=== PATIENT | female | born 1980 | race Caucasian/White ===

== ENCOUNTER 2022-12-03 22:37 | Inpatient (IN) | payer SELFPAY ==
[2022-12-03] MEDS ORDERED: ONDANSETRON 4 MG/2 ML VIAL IVP STA (23:06)
[2022-12-03] MEDS ORDERED: SODIUM CHLORIDE 0.9% 1,000 ML IV STA (23:06)
[2022-12-03] MEDS ORDERED: MORPHINE SULFATE 4 MG/ML SYRINGE IVP STA (23:07)
--- NOTE | 2022-12-03 23:27 | ED ---
Abdominal Pain HPI - General Source: patient Mode of arrival: ambulatory Limitations: no limitations <Bimal Blanco - Last Filed: 12/04/22 00:15> - General Source: RN notes reviewed, old records reviewed - History of Present Illness Complaint: abdominal pain Location: RLQ, R flank Radiation: RLQ, R flank Migration to: RLQ, suprapubic Severity: moderate Severity scale (1-10): 7 Quality: stabbing Consistency: constant Improves With: nothing Worsens With: nothing Associated Symptoms: nausea Treatments Prior to Arrival: other (0) <Lito Mac - Last Filed: 12/04/22 01:13> - General Chief Complaint: Abdominal Pain Stated Complaint: Abd Pain Time Seen by Provider: 12/03/22 22:59 - History of Present Illness Initial Comments: Patient is a 42-year-old female presenting with chief complaint of abdominal pain. Pain is located on the right side of her abdomen has been present for the last 24 hours. She admits to nausea and vomiting as well as loss of appetite. No diarrhea, hematochezia, melena. No dysuria, hematuria, flank pain. No vaginal bleeding or discharge. Surgical history includes hysterectomy. (Bimal Blanco) - Related Data Allergies Allergy/AdvReac Type Severity Reaction Status Date / Time No Known Allergies Allergy Verified 12/03/22 22:50 Review of Systems ROS Other: All systems not noted in ROS Statement are negative. <Bimal Blanco - Last Filed: 12/04/22 00:15> ROS Other: All systems not noted in ROS Statement are negative. <Lito Mac - Last Filed: 12/04/22 01:13> ROS Statement: Those systems with pertinent positive or pertinent negative responses have been documented in the HPI. Past Medical History Past Medical History: No Reported History History of Any Multi-Drug Resistant Organisms: None Reported Past Surgical History: Hysterectomy Past Psychological History: No Psychological Hx Reported Smoking Status: Never smoker Past Alcohol Use History: None Reported Past Drug Use History: None Reported <Bimal Blanco - Last Filed: 12/04/22 00:15> General Exam Limitations: no limitations General appearance: alert, in no apparent distress Head exam: Present: atraumatic, normocephalic, normal inspection Eye exam: Present: normal appearance Neck exam: Present: normal inspection, full ROM Respiratory exam: Present: normal lung sounds bilaterally. Absent: respiratory distress, wheezes, rales, rhonchi, stridor Cardiovascular Exam: Present: regular rate, normal rhythm, normal heart sounds. Absent: systolic murmur, diastolic murmur, rubs, gallop, clicks GI/Abdominal exam: Present: soft, tenderness, guarding. Absent: distended, rebound, rigid Neurological exam: Present: alert, oriented X3, CN II-XII intact Psychiatric exam: Present: normal affect, normal mood Skin exam: Present: warm, dry, intact, normal color. Absent: rash <Bimal Blanco - Last Filed: 12/04/22 00:15> General appearance: alert, in no apparent distress Head exam: Present: atraumatic, normocephalic, normal inspection Eye exam: Present: normal appearance, PERRL, EOMI. Absent: scleral icterus, c onjunctival injection, periorbital swelling ENT exam: Present: normal exam, mucous membranes moist Neck exam: Present: normal inspection. Absent: tenderness, meningismus, lymphadenopathy Respiratory exam: Present: normal lung sounds bilaterally. Absent: respiratory distress, wheezes, rales, rhonchi, stridor Cardiovascular Exam: Present: regular rate, normal rhythm, normal heart sounds. Absent: systolic murmur, diastolic murmur, rubs, gallop, clicks GI/Abdominal exam: Present: soft, normal bowel sounds. Absent: distended, tenderness, guarding, rebound, rigid Extremities exam: Present: normal inspection, full ROM, normal capillary refill. Absent: tenderness, pedal edema, joint swelling, calf tenderness Back exam: Present: normal inspection Neurological exam: Present: alert, oriented X3, CN II-XII intact Psychiatric exam: Present: normal affect, normal mood Skin exam: Present: warm, dry, intact, normal color. Absent: rash <Lito Mac - Last Filed: 12/04/22 01:13> Course <Bimal Blanco - Last Filed: 12/04/22 00:15> <Lito Mac - Last Filed: 12/04/22 01:13> Vital Signs 12/03/22 22:46 Temperature 98.9 F Pulse Rate 118 H Respiratory 20 Rate Blood Pressure 134/76 O2 Sat by Pulse 97 Oximetry - Reevaluation(s) Reevaluation #1: Patient is signed out to my attending Dr. Mac for further management and disposition 12/04/22 00:15 (Bimal Blanco) Reevaluation #2: 12/04/22 01:08 Medical record is reviewed (Lito Mac) Reevaluation #3: 12/04/22 01:08 Patient informed of results questions answered (Lito Mac) Reevaluation #4: 12/04/22 01:08 Differential Abdominal Pain Women: Appendicitis, Cholecystitis, diverticulosis, ischemic bowel, pancreatitis, hepatitis, UTI, gastroenteritis, AAA, incarcerated hernia, bowel obstruction, constipation, inflammatory bowel, hepatitis, peptic ulcer disease, splenic infarction, perforated viscus, vulvitis, ovarian torsion, PID, kidney stone, placenta abruption, this is not meant to be an all-inclusive list (Lito Mac) Reevaluation #5: 12/04/22 01:09 Was pt. sent in by a medical professional or institution? @ -no Did you speak to anyone other than the patient for history? @ -family Did you review nursing and triage notes? @ -agree Were old charts reviewed? @ -no Differential Diagnosis? @ -prior EKG interpreted by me (3pts min.)? @ -[none] X-rays interpreted by me (1pt min.)? @ -[none] CT interpreted by me (1pt min.)? @ -[none] U/S interpreted by me (1pt. min.)? @ -[none] What testing was considered but not performed? (CT, X-rays, U/S, labs)? Why? @ [CT, X-rays, U/S, labs? Why?] What meds were considered but not given? Why? @ -[none] Did you discuss the management of the patient with other professionals? @ --no Did you reconcile home meds? @ -[none] Was smoking cessation discussed for >3mins.? @ -[none] Was critical care preformed (if so, how long)? @ -[none] Were there social determinants of health that impacted care today? How? (Homelessness, low income, unemployed, alcoholism, drug addiction, transportation, low edu. Level, literacy, decrease access to med. care, fpc, rehab)? @ -no Was there de-escalation of care discussed even if they declined? (Discuss DNR or withdrawal of care, Hospice)? @ -no What co-morbidities impacted this encounter? (DM, HTN, Smoking, COPD, CAD, Cancer, CVA, Hep., AIDS, mental health diagnosis, sleep apnea, morbid obesity)? @ -no Was patient admitted / discharged? @ -admit Undiagnosed new problem with uncertain prognosis? @ -[none] Drug Therapy requiring intensive monitoring for toxicity (Heparin, Nitro, Insulin, Cardizem)? @ -[none] Were any procedures done? @ -[none] Diagnosis/symptom? @ -[default] Acute, or Chronic, or Acute on Chronic? @ -[default] Uncomplicated (without systemic symptoms) or Complicated (systemic symptoms)? @ -[default] Side effects of treatment? @ -[none] Exacerbation, Progression, or Severe Exacerbation] @ -[no] Poses a threat to life or bodily function? @ -[no] (Lito Mac) - Consultations Consultation #1: Spoke with attending surgical physician who we will admit this patient (Lito Mac) Medical Decision Making - Lab Data Result diagrams: 12/03/22 23:19 12/03/22 23:19 <Bimal Blanco - Last Filed: 12/04/22 00:15> - Lab Data Result diagrams: 12/03/22 23:19 12/03/22 23:19 - Radiology Data Radiology results: report reviewed (CT abdomen and pelvis is positive for appendicitis), image reviewed <Lito Mac - Last Filed: 12/04/22 01:13> - Medical Decision Making [age] female positive appendicitis positive white count possible rupture place on antibiotics pain control currently comfortable for signs have been normal and stable patient will be admitted (Lito Mac) - Lab Data Lab Results 12/03/22 12/03/22 12/03/22 Range/Units 23:19 23:19 23:19 WBC 15.1 H (3.8-10.6) k/uL RBC 5.77 H (3.80-5.40) m/uL Hgb 16.4 H (11.4-16.0) gm/dL Hct 46.3 H (34.0-46.0) % MCV 80.3 (80.0-100.0) fL MCH 28.4 (25.0-35.0) pg MCHC 35.4 (31.0-37.0) g/dL RDW 12.4 (11.5-15.5) % Plt Count 195 (150-450) k/uL MPV 7.9 Neutrophils % 83 % Lymphocytes % 11 % Monocytes % 6 % Eosinophils % 0 % Basophils % 0 % Neutrophils # 12.5 H (1.3-7.7) k/uL Lymphocytes # 1.6 (1.0-4.8) k/uL Monocytes # 0.9 (0-1.0) k/uL Eosinophils # 0.0 (0-0.7) k/uL Basophils # 0.0 (0-0.2) k/uL PT 10.6 (9.0-12.0) sec INR 1.0 (<1.2) APTT 25.5 (22.0-30.0) sec Sodium (137-145) mmol/L Potassium (3.5-5.1) mmol/L Chloride (98-107) mmol/L Carbon Dioxide (22-30) mmol/L Anion Gap mmol/L BUN (7-17) mg/dL Creatinine (0.52-1.04) mg/dL Est GFR (CKD-EPI)AfAm (>60 ml/min/1.73 sqM) Est GFR (CKD-EPI)NonAf (>60 ml/min/1.73 sqM) Glucose (74-99) mg/dL Plasma Lactic Acid Eduardo (0.7-2.0) mmol/L Calcium (8.4-10.2) mg/dL Total Bilirubin (0.2-1.3) mg/dL AST (14-36) U/L ALT (4-34) U/L Alkaline Phosphatase (38-126) U/L Total Protein (6.3-8.2) g/dL Albumin (3.5-5.0) g/dL Amylase (30-110) U/L Lipase (23-300) U/L Urine Color Colorless Urine Appearance Clear (Clear) Urine pH 5.5 (5.0-8.0) Ur Specific [place] 1.002 (1.001-1.035) Urine Protein Negative (Negative) Urine Glucose (UA) Negative (Negative) Urine Ketones Negative (Negative) Urine Blood Negative (Negative) Urine Nitrite Negative (Negative) Urine Bilirubin Negative (Negative) Urine Urobilinogen <2.0 (<2.0) mg/dL Ur Leukocyte Esterase Negative (Negative) 12/03/22 12/03/22 Range/Units 23:19 23:19 WBC (3.8-10.6) k/uL RBC (3.80-5.40) m/uL Hgb (11.4-16.0) gm/dL Hct (34.0-46.0) % MCV (80.0-100.0) fL MCH (25.0-35.0) pg MCHC (31.0-37.0) g/dL RDW (11.5-15.5) % Plt Count (150-450) k/uL MPV Neutrophils % % Lymphocytes % % Monocytes % % Eosinophils % % Basophils % % Neutrophils # (1.3-7.7) k/uL Lymphocytes # (1.0-4.8) k/uL Monocytes # (0-1.0) k/uL Eosinophils # (0-0.7) k/uL Basophils # (0-0.2) k/uL PT (9.0-12.0) sec INR (<1.2) APTT (22.0-30.0) sec Sodium 137 (137-145) mmol/L Potassium 3.5 (3.5-5.1) mmol/L Chloride 100 (98-107) mmol/L Carbon Dioxide 26 (22-30) mmol/L Anion Gap 11 mmol/L BUN 7 (7-17) mg/dL Creatinine 0.59 (0.52-1.04) mg/dL Est GFR (CKD-EPI)AfAm >90 (>60 ml/min/1.73 sqM) Est GFR (CKD-EPI)NonAf >90 (>60 ml/min/1.73 sqM) Glucose 135 H (74-99) mg/dL Plasma Lactic Acid Eduardo 2.2 H* (0.7-2.0) mmol/L Calcium 9.5 (8.4-10.2) mg/dL Total Bilirubin 1.2 (0.2-1.3) mg/dL AST 21 (14-36) U/L ALT 22 (4-34) U/L Alkaline Phosphatase 85 (38-126) U/L Total Protein 8.0 (6.3-8.2) g/dL Albumin 4.7 (3.5-5.0) g/dL Amylase 47 (30-110) U/L Lipase 70 (23-300) U/L Urine Color Urine Appearance (Clear) Urine pH (5.0-8.0) Ur Specific [place] (1.001-1.035) Urine Protein (Negative) Urine Glucose (UA) (Negative) Urine Ketones (Negative) Urine Blood (Negative) Urine Nitrite (Negative) Urine Bilirubin (Negative) Urine Urobilinogen (<2.0) mg/dL Ur Leukocyte Esterase (Negative) Disposition <Bimal Blanco - Last Filed: 12/04/22 00:15> Is patient prescribed a controlled substance at d/c from ED?: No Time of Disposition: 01:15 <Lito Mac - Last Filed: 12/04/22 01:13> Clinical Impression: Acute abdomen, Abdominal pain, Acute appendicitis Disposition: ADMITTED IP TO THIS HOSP Condition: Serious Referrals: None,Stated [Primary Care Provider] - 1-2 days
[2022-12-03 23:43] LABS: Basophils % (A) 0 %; Eosinophils % (A) 0 %; HCT 46.3 % (34.0-46.0); HGB 16.4 gm/dL (11.4-16.0); Lymphocytes # (A) 1.6 k/uL (1.0-4.8); Lymphocytes % (A) 11 %; MCH 28.4 pg (25.0-35.0); MCHC 35.4 g/dL (31.0-37.0); MCV 80.3 fL (80.0-100.0); Mean Platelet Volume 7.9; Monocytes # (A) 0.9 k/uL (0-1.0); Monocytes % (A) 6 %; Neutrophils # (A) 12.5 k/uL (1.3-7.7); Neutrophils % (A) 83 %; Platelet Count 195 k/uL (150-450); RBC 5.77 m/uL (3.80-5.40); RDW 12.4 % (11.5-15.5); WBC 15.1 k/uL (3.8-10.6)
[2022-12-03 23:53] LABS: Partial Thromboplastin Time 25.5 sec (22.0-30.0); Prothrombin Time 10.6 sec (9.0-12.0)
[2022-12-03 23:54] LABS: Appearance,Urine Clear (Clear); Bilirubin,Urine Negative (Negative); Blood,Urine Negative (Negative); Color,Urine Colorless; Glucose,Urine (UA) Negative (Negative); Ketones,Urine Negative (Negative); Leukocyte Esterase,Urine Negative (Negative); Nitrite,Urine Negative (Negative); PH, Urine 5.5 (5.0-8.0); Protein,Urine Negative (Negative); Specific Gravity,Urine 1.002 (1.001-1.035); Urobilinogen,Urine <2.0 mg/dL (<2.0)
[2022-12-03 23:57] LABS: ALT 22 U/L (4-34); AST 21 U/L (14-36); African American GFR (CKD) >90 (>60 ml/min/1.73 sqM); Albumin 4.7 g/dL (3.5-5.0); Alkaline Phosphatase 85 U/L (38-126); Amylase 47 U/L (30-110); Anion Gap 11 mmol/L; Blood Urea Nitrogen 7 mg/dL (7-17); Calcium 9.5 mg/dL (8.4-10.2); Carbon Dioxide 26 mmol/L (22-30); Chloride 100 mmol/L (98-107); Glucose 135 mg/dL (74-99); Lipase 70 U/L (23-300); Non-African American GFR(CKD) >90 (>60 ml/min/1.73 sqM); Potassium 3.5 mmol/L (3.5-5.1); Sodium 137 mmol/L (137-145); Total Bilirubin 1.2 mg/dL (0.2-1.3)
--- NOTE | 2022-12-04 00:49 | CT ---
EXAMINATION TYPE: CT abdomen pelvis w con DATE OF EXAM: 12/04/2022 COMPARISON: None HISTORY: right sided abd pain CT DLP: [id number] mGycm Automated exposure control for dose reduction was used. CONTRAST: Performed with IV Contrast, patient injected with 100 mL of Isovue 300. Images obtained from the diaphragm to the floor the pelvis with the IV contrast. Lung bases are clear of consolidation. No pleural effusion. There is minimal subsegmental atelectasis at the lung bases. Heart size is normal. No pericardial effusion. Liver spleen and stomach pancreas and gallbladder appear intact. The bile duct are not dilated. There is no adrenal mass. Kidneys show satisfactory contrast opacification. There is no hydronephrosi s. Ureters are not dilated. Delayed images show normal renal excretion. No retroperitoneal adenopathy . The bladder distends smoothly. No inguinal hernia. There is hysterectomy. The lumbar vertebrae have normal alignment. Posterior element are intact. Disc spaces are normal. No compression fracture. The bony pelvis is intact. The hip joints are intact. There is moderate fat stranding in the right lower quadrant with dilated fluid-filled appendix. Appen zbigniew measures up to 1.5 cm. There is small amount of low-density fluid in the pelvis on the right side . There is no evidence of a bowel obstruction. No intestinal wall thickening. IMPRESSION: Dilated appendix with fat stranding and fluid. There is some free fluid in the pelvis and ruptured ap pendicitis is likely.
[2022-12-04] MEDS ORDERED: AMPICILLIN-SULBACTAM 3 GM in SODIUM CHLORIDE 0.9% 100 ML IVPB STA (00:51)
[2022-12-04] MEDS ORDERED: MORPHINE SULFATE 4 MG/ML SYRINGE IVP STA (00:51)
[2022-12-04] MEDS ORDERED: NALOXONE 0.4 MG/ML 1 ML VIAL IV PRN (01:06)
[2022-12-04] MEDS: SODIUM CHLORIDE 0.9% 1,000 ML IV SCH ×3 (01:24→21:00)
[2022-12-04] MEDS: MORPHINE SULFATE 4 MG/ML SYRINGE IVP PRN ×3 (05:26→20:57)
[2022-12-04] MEDS: AMPICILLIN-SULBACTAM 3 GM in SODIUM CHLORIDE 0.9% 100 ML IVPB SCH ×3 (06:14→20:53)
--- NOTE | 2022-12-04 15:07 | P.GSHP ---
History of Present Illness H&P Date: 12/04/22 Chief Complaint: Acute appendicitis 42-year-old female who had classic signs and symptoms of acute appendicitis came to the emergency department with right lower quadrant pain. The emergency room physician suspected this diagnosis and CT confirmed this. She had other findin gs consistent with the diagnosis. She was admitted to the hospital and started on IV antibiotics around 1:30 AM on 12/04/2022. - Constitutional Constitutional: Reports as per HPI - Cardiovascular Cardiovascular: Reports as per HPI - Respiratory Respiratory: Reports as per HPI - Gastrointestinal Gastrointestinal: Reports as per HPI - Genitourinary (Female) Genitourinary: Reports as per HPI - Menstruation Menstruation: Reports as per HPI - Genitourinary (Male) Genitourinary: Reports as per HPI - Musculoskeletal Musculoskeletal: Reports as per HPI - Integumentary Integumentary: Reports as per HPI - Neurological Neurological: Reports as per HPI - Psychiatric Psychiatric: Reports as per HPI - Endocrine Endocrine: Reports as per HPI - Hematologic/Lymphatic Hematologic/Lymphatic: Reports as per HPI - Allergic/Immunologic Allergic/Immunologic: Reports as per HPI Past Medical History Past Medical History: No Reported History History of Any Multi-Drug Resistant Organisms: None Reported Past Surgical History: Hysterectomy Past Anesthesia/Blood Transfusion Reactions: No Reported Reaction Past Psychological History: No Psychological Hx Reported Smoking Status: Never smoker Past Alcohol Use History: None Reported Past Drug Use History: None Reported Medications and Allergies Home Medications Medication Instructions Recorded Confirmed Type No Known Home Medications 12/04/22 12/04/22 History Allergies Allergy/AdvReac Type Severity Reaction Status Date / Time No Known Allergies Allergy Verified 12/04/22 11:41 Surgical - Exam Vital Signs Temp Pulse Resp BP Pulse Ox 98.9 F 118 H 20 134/76 97 12/03/22 22:46 12/03/22 22:46 12/03/22 22:46 12/03/22 22:46 12/03/22 22:46 - General well developed, well nourished, moderate pain - Eyes PERRL - ENT normal pinna, normal nares, normal mucosa, no hearing loss, no congestion - Neck no masses, no bruits, trachea midline, no lymphadectomy, no venous distension - Respiratory normal expansion, normal respiratory effort, clear to percussion, clear to auscultation - Cardiovascular Rhythm: regular - Abdomen Abdomen: soft, tender, guarding, rebound Hernia: none - Genitourinary normal external genitalia, normal perineum - Rectum Rectum: normal sphincter tone, no hemorrhoids, no tenderness - Integumentary no rash, no growths - Neurologic normal coordination, normal sensation - Musculoskeletal normal gait - Psychiatric oriented to time, oriented to person Results - Labs 12/03/22 23:19 12/03/22 23:19 Abnormal Lab Results - Last 24 Hours (Table) 12/03/22 12/03/22 12/03/22 Range/Units 23:19 23:19 23:19 WBC 15.1 H (3.8-10.6) k/uL RBC 5.77 H (3.80-5.40) m/uL Hgb 16.4 H (11.4-16.0) gm/dL Hct 46.3 H (34.0-46.0) % Neutrophils # 12.5 H (1.3-7.7) k/uL Glucose 135 H (74-99) mg/dL Plasma Lactic Acid Eduardo 2.2 H* (0.7-2.0) mmol/L Diabetes panel 12/03/22 Range/Units 23:19 Sodium 137 (137-145) mmol/L Potassium 3.5 (3.5-5.1) mmol/L Chloride 100 (98-107) mmol/L Carbon Dioxide 26 (22-30) mmol/L BUN 7 (7-17) mg/dL Creatinine 0.59 (0.52-1.04) mg/dL Glucose 135 H (74-99) mg/dL Calcium 9.5 (8.4-10.2) mg/dL AST 21 (14-36) U/L ALT 22 (4-34) U/L Alkaline Phosphatase 85 (38-126) U/L Total Protein 8.0 (6.3-8.2) g/dL Albumin 4.7 (3.5-5.0) g/dL Calcium panel 12/03/22 Range/Units 23:19 Calcium 9.5 (8.4-10.2) mg/dL Albumin 4.7 (3.5-5.0) g/dL Pituitary panel 12/03/22 Range/Units 23:19 Sodium 137 (137-145) mmol/L Potassium 3.5 (3.5-5.1) mmol/L Chloride 100 (98-107) mmol/L Carbon Dioxide 26 (22-30) mmol/L BUN 7 (7-17) mg/dL Creatinine 0.59 (0.52-1.04) mg/dL Glucose 135 H (74-99) mg/dL Calcium 9.5 (8.4-10.2) mg/dL Adrenal panel 12/03/22 Range/Units 23:19 Sodium 137 (137-145) mmol/L Potassium 3.5 (3.5-5.1) mmol/L Chloride 100 (98-107) mmol/L Carbon Dioxide 26 (22-30) mmol/L BUN 7 (7-17) mg/dL Creatinine 0.59 (0.52-1.04) mg/dL Glucose 135 H (74-99) mg/dL Calcium 9.5 (8.4-10.2) mg/dL Total Bilirubin 1.2 (0.2-1.3) mg/dL AST 21 (14-36) U/L ALT 22 (4-34) U/L Alkaline Phosphatase 85 (38-126) U/L Total Protein 8.0 (6.3-8.2) g/dL Albumin 4.7 (3.5-5.0) g/dL Assessment and Plan (1) Acute appendicitis Current Visit: Yes Status: Acute Code(s): K35.80 - UNSPECIFIED ACUTE APPENDICITIS SNOMED Code(s): 29736163 Plan: Laparoscopic appendectomy today
[2022-12-04] MEDS ORDERED: DEXAMETHASONE SOD PHOSPHATE 4 MG/ML 1 ML VIAL IV ONE (17:00)
[2022-12-04] MEDS ORDERED: fentaNYL (PF) 50 MCG/ML 2 ML AMP ONE (17:00)
[2022-12-04] MEDS ORDERED: GLYCOPYRROLATE 0.2 MG/ML 2 ML VIAL ONE (17:00)
[2022-12-04] MEDS ORDERED: ROCURONIUM 10 MG/ML (5 ML VIAL) IV ONE (17:00)
[2022-12-04] MEDS ORDERED: LIDOCAINE 4% LTA KIT (4 ML) TOPICAL ONE (17:00)
[2022-12-04] MEDS ORDERED: PROPOFOL 10 MG/ML 20 ML VIAL IV ONE (17:00)
[2022-12-04] MEDS ORDERED: SUCCINYLCHOLINE CHLORIDE 200 MG/10 ML VIAL IV ONE (17:00)
[2022-12-04] MEDS ORDERED: LIDOCAINE 2% INJ 20 MG/ML (2 ML VIAL) ONE (17:00)
[2022-12-04] MEDS ORDERED: NEOSTIGMINE 1 MG/ML 10 ML VIAL ONE (17:00)
[2022-12-04] MEDS ORDERED: MIDAZOLAM 2 MG/2 ML VIAL ONE (17:00)
[2022-12-04] MEDS ORDERED: SCOPOLAMINE 1 MG/72 HR PATCH TRANSDERM ONE (17:00)
[2022-12-04] MEDS ORDERED: ONDANSETRON 4 MG/2 ML VIAL IVP ONE (17:00)
[2022-12-04] MEDS ORDERED: IV FLUID CONTINUATION 200 ML IV ONE (17:05)
[2022-12-04] MEDS ORDERED: BUPIVACAIN-EPI 0.25%-1:200,000 30 ML VIAL SQ ONE ×2 (17:05)
[2022-12-04] MEDS ORDERED: LACTATED RINGERS 1,000 ML IV ONE (17:30)
--- NOTE | 2022-12-04 18:02 | P.OP ---
Date of Procedure: 12/04/22 Preoperative Diagnosis: Acute appendicitis Postoperative Diagnosis: Acute appendicitis without rupture or perforation Procedure(s) Performed: Laparoscopic appendectomy Implants: None Anesthesia: MIKEA Surgeon: Torres Gonzalez Estimated Blood Loss (ml): 50 Pathology: other (Appendix) Condition: stable Disposition: other (Discharge home) Indications for Procedure: 42-year-old female presented with classic signs and symptoms of acute appendicitis and the diagnosis was confirmed on imaging and exam. Patient was taken for left scopic appendectomy in the same day. Informed consent was obtained. Operative Findings: Under sterile conditions and general anesthesia left direct view laparoscopy was used pneumoperitoneum was created second and third ports were placed some adhesions were taken down around the umbilicus the appendix was visualized this was retrocecal and a window was created along the appendix and cecum there was a lot of inflammation in this area but I was able to get the stapler echelon 60 load across the base of the appendix and I felt this would be a good angle and would grab good tissue so we transected the appendix then we came through the mesoappendix and put the appendix with the mesal appendix in the Endo Catch bag and remove the Endo Catch bag through the left lower incision this was a 12 mm port. Then we used a Cholo-Marcos to close this there was no evidence of perforation or contamination there was some reactive fluid but no pus or stool but there was a lot of edema and swelling. The cecum appeared to have a quite a bit of edema about it but it looked viable and looks good. The abdomen and pelvis was irrigated and evacuated the ports were removed the Cholo-Marcos was used to close the 12 mm port and left lower quadrant under direct visualization. The wound was closed in standard fashion and Dermabond was used as the final dressing. The lap count and instrument count were correct. Description of Procedure: As above patient was stable
[2022-12-04] MEDS ORDERED: HYDROmorphone 0.5 MG/0.5 ML SYRINGE IVP ONE (18:18)
[2022-12-05] MEDS: AMPICILLIN-SULBACTAM 3 GM in SODIUM CHLORIDE 0.9% 100 ML IVPB SCH ×2 (00:45→06:13)
[2022-12-05] MEDS: SODIUM CHLORIDE 0.9% 1,000 ML IV SCH ×2 (00:46→10:21)
[2022-12-05] MEDS: MORPHINE SULFATE 4 MG/ML SYRINGE IVP PRN ×2 (01:16→06:18)
[2022-12-05 08:26] VITALS: BP 111/73; PULSE 55; RESP 16; TEMP 98.5
== END 2022-12-05 12:29 | disposition home or self-care (01) | DRG 337 ==
LOC: EC 22:37 → 4SSUR 12-04 01:06
PROVIDERS: ADMIT Surgery Surgical Oncology; ATTEND Surgery Surgical Oncology
PROC: 0DNW4ZZ Release Peritoneum, Percutaneous Endoscopic Approach (ICD-10-PCS; 2022-12-04)
PROC: 0DTJ4ZZ Resection of Appendix, Percutaneous Endoscopic Approach (ICD-10-PCS; principal; 2022-12-04 15:00)
DX: K35.80 Unspecified acute appendicitis (principal); K66.0 Peritoneal adhesions (postprocedural) (postinfection); Z90.710 Acquired absence of both cervix and uterus
CPT/HCPCS: 36415; 74177; 80053; 81003; 82150; 83605; 83690; 85025; 85610; 85730; 88304